=== PATIENT | female | born 1990 | race Caucasian/White ===

== ENCOUNTER 2016-08-22 01:32 | Emergency (ER) | payer OTHER ==
[~2016-08-22] VITALS: Ht 167.6 cm; Wt 54.7 kg
[~2016-08-22 01:32] MED LIST: ALBUAER2 INH; CETI10TA84 PO; FLUT0.15 NAE; MELO15TA4 PO
[2016-08-22 01:33] VITALS: TEMP 36.5; Ht 167.6 cm; Wt 54.7 kg
[2016-08-22] MEDS ORDERED: PRENTAB26 PO (04:26)
--- NOTE | 2016-08-22 04:28 | EMERGENCY ROOM VISIT NOTE ---
History Report prepared by [place]ill[place]: Nikole Estrada Under the Supervision of: Dr. Ankita Baker M.D. First contact with patient: 04:24 Chief Complaint: CONSTIPATION Stated Complaint: LLQ ABDOMINAL PAIN, CONSTIPATION Nursing Triage Summary: Patient c/o LLQ abdominal pain and constipation that began a few months ago. Currently 15 weeks . No relief with suppositories, enemas, or MOM at home. History of Present Illness The patient is a 25 year old female who presents to the Emergency Room with complaints of constant constipation for the past 2 months. She is 15 weeks . She has been taking MiraLAX and Colace daily. Over the past couple of weeks her constipation has worsened. About a week ago it had been 14 days since she had a bowel movement. In the past week she had 2 bowel movements. She had tried enemas and suppositories without any relief. The patient called her ob- hostel manager 3 days ago who recommended milk of magnesia and to come to the ED if she did not get relief. The patient had some relief yesterday after taking the milk of magnesia. Today she had 5 bowel movements. She describes her stool as thin and narrow. Her stools have been liquid for the past month. The patient states that this evening she stopped being able to evacuate her bowels. She took another dose of the milk of magnesia tonight around 1900. The patient also reports intermittent LLQ abdominal pain for the past week that worsened tonight. She describes her pain as a dull ache and rates it as a 5/10 in severity. She could not sleep due to her pain so she came to the ED for further evaluation. The patient did not go to work today because of her symptoms. She is not taking any iron supplements. Source of History: patient Onset: 2 months ago Position: abdomen (LLQ) Symptom Intensity: 5/10 Quality: other (constipation) Timing: constant Modifying Factors (Relieving): movement, other (Milk of magnesia) Note: The patient is 15 weeks . Review of Systems See HPI for pertinent positives & negatives. A total of 10 systems reviewed and were otherwise negative. Past Medical & Surgical Medical Problems: (1) Asthma (2) Back pain (3) Bronchitis (4) Chest pain, musculoskeletal (5) Cough (6) Cough (7) Pneumonia (8) Right rib fracture (9) Right rib fracture (10) Right-sided chest wall pain (11) Stomach problems Surgical Problems: (1) History of wisdom tooth extraction Family History FH: heart disease Hypertension Social History Smoking Status: Never Smoker Alcohol Use: occasionally Drug Use: none Marital Status: in relationship Housing Status: lives with family Occupation Status: employed Current/Historical Medications Scheduled Dicyclomine Hcl (Bentyl), 10 MG PO Q6 Multivit/Min/Iron/Fol Ac/Pren ( Vitamin), 1 TAB PO DAILY Scheduled PRN Albuterol (Ventolin Hfa), 2 PUFFS INH Q4H PRN for Shortness of Breath Cetirizine (Zyrtec), 10 MG PO DAILY PRN for SOB/Wheezing Fluticasone Propionate (Nasal) (Flonase Allergy Relief), 2 SPRAYS MAGDI DAILY PRN for CONGESTION Allergies Coded Allergies: Neomycin (Verified Allergy, Mild, itchy ears, 08/24/14) used as ear dropps Levofloxacin (Verified Allergy, Unknown, NAUSEA/VOMITING, 08/26/14) Physical Exam Vital Signs Date Time Temp Pulse Resp B/P Pulse Ox O2 Delivery O2 Flow Rate FiO2 08/22/16 05:08 74 20 103/66 98 08/22/16 04:07 91 18 98/55 97 Room Air 08/22/16 01:33 36.5 93 18 130/88 99 Room Air Physical Exam Vital signs reviewed. General: Well-appearing 25-year-old female, in no significant distress. HEENT: No scleral icterus, PERRLA, neck supple. Atraumatic. Cardiovascular: Regular rate and rhythm, no extra sounds. Pulmonary: Clear to auscultation bilaterally, normal work of breathing. Abdomen: Soft, gravid, nontender, nondistended, positive bowel sounds. Musculoskeletal: Atraumatic, no peripheral edema. Neurologic: Patient awake alert and oriented x 3 Skin: Warm, dry, no rash Medical Decision & Procedures ER Provider Diagnostic Interpretation: Radiology results as stated below per my review and radiologist interpretation: US PELVIC/OB: The ovaries were not visualized due to overlying bowel gas. No free fluid appreciated. Single intrauterine . heart rate = 150 bpm. Radiologist: Shukri Petty M.D. Laboratory Results Test 08/22/16 02:37 Urine Color YELLOW Urine Appearance CLEAR (CLEAR) Urine pH 7.0 (4.5-7.5) Urine Specific [place] 1.003 (1.000-1.030) Urine Protein NEG (NEG) Urine Glucose (UA) NEG (NEG) Urine Ketones NEG (NEG) Urine Occult Blood NEG (NEG) Urine Nitrite NEG (NEG) Urine Bilirubin NEG (NEG) Urine Urobilinogen NEG (NEG) Urine Leukocyte Esterase NEG (NEG) Urine WBC (Auto) 1-5 /hpf (0-5) Urine RBC (Auto) 0-4 /hpf (0-4) Urine Hyaline Casts (Auto) 1-5 /lpf (0-5) Urine Epithelial Cells (Auto) 10-20 /lpf (0-5) Urine Bacteria (Auto) NEG (NEG) Date/Time Source Procedure Growth Status 08/22/16 02:37 Urine , Clean Catch Urine Culture - Final NO GROWTH - LESS THAN 1,000 COLONIES/ML Complete Laboratory results per my review. Medications Administered Medications (Trade) Dose Ordered Sig/Ritika Route Start Time Stop Time Status Last Admin Dose Admin Dicyclomine HCl (Bentyl Cap) 10 mg NOW ONCE PO 08/22/16 05:00 08/22/16 05:01 DC 08/22/16 05:05 10 MG ED Course 0218: Past medical records reviewed. The patient was evaluated in room B8. A complete history and physical examination was performed. 0455: I reassessed the patient at this time. She is feeling better and resting comfortably. I discussed the results and treatment plan with the patient. I answered all pertaining questions that she had. She expressed understanding and verbalized agreement. The patient will be discharged home. 0500: Dicyclomine HCl 10 mg PO Medical Decision Differential diagnoses includes ovarian cyst, ovarian torsion, ectopic , colitis, diverticulitis, laxative misuse, UTI. This pt was evaluated and appeared to be in no distress. PE reveals a soft abdomen with palpable gravid uterus. LLQ is mildly reproducible. UA is negative. US of fetus reveals a viable IUP with FHT 150 bpm. Ovaries were not visualized. Pt had 5 BMs today. I suspect she is overusing softeners and laxatives at this point b/c of previous constipation. Pain is likely r/t bowel spasm. She was given Bentyl 10 mg po. I do not feel the pt's presentation warrants imaging at this time. She will f/u with her OBGYN this week for reevaluation and return to the ED for worsening of symptoms or any medical concerns. Impression Primary Impression: Abdominal pain, LLQ Additional Impression: Second trimester Scribe Attestation The scribe's documentation has been prepared under my direction and personally reviewed by me in its entirety. I confirm that the note above accurately reflects all work, treatment, procedures, and medical decision making performed by me. Departure Information Dispostion Home / Self-Care Prescriptions Dicyclomine Hcl (BENTYL) 10 Mg Cap 10 MG PO Q6, #30 CAP Prov: Ankita Baker M.D. 08/22/16 Referrals No Doctor, Assigned (PCP) Forms HOME CARE DOCUMENTATION FORM, IMPORTANT VISIT INFORMATION Patient Instructions My [facility] Additional Instructions Diagnosis: Left lower quadrant abdominal discomfort, second trimester Increase the fiber and water in your diet Stop using laxatives. You may continue Colace 100 mg twice daily. Bentyl 10 mg every 6 hours as needed for bowel cramping Follow-up with your MEDIUM CYCLE SALESPERSON this week for reevaluation. Return to the ER for worsening of symptoms or any medical concerns. Problem Qualifiers
[2016-08-22 04:30] LABS: URINE APPEARANCE CLEAR (CLEAR); URINE BILIRUBIN NEG (NEG); URINE COLOR YELLOW; URINE NITRITE NEG (NEG); URINE SPECIFIC GRAVITY 1.003 (1.000-1.030); UROBILINOGEN NEG (NEG)
[2016-08-22 04:31] LABS: MANUAL MICROSCOPIC REQUIRED? NO; REVIEW REQ? NO
[2016-08-22] MEDS ORDERED: DICYCLOMINE HCL 10 MG CAP PO ONE (05:00)
[2016-08-22] MEDS ORDERED: DICY10CA55 PO (05:04)
[2016-08-22 05:08] VITALS: BP 103/66; PULSE 74; O2SAT 98
--- NOTE | 2016-08-22 07:26 | DIAGNOSTIC IMAGING REPORT ---
PELVIC ULTRASOUND, TRANSABDOMINAL AND TRANSVAGINAL HISTORY: . Left lower quadrant abdominal/pelvic pain. COMPARISON: None. FINDINGS: Uterus: There is a posterior fundal placenta. No evidence for subchorionic hematoma. The cervix appears closed and is 3.7 cm in length. Small focal contraction within the anterior uterus. Normal amniotic fluid volume. heart rate was 150 bpm. Right ovary: Obscured by overlying bowel gas. Left ovary: Obscured by overlying bowel gas. Miscellaneous:No pelvic free fluid. IMPRESSION: 1. The ovaries were obscured by overlying bowel gas. No adnexal masses identified. 2. Single live intrauterine gestation with a heart rate of 150 bpm. Electronically signed by: Tereso Fry M.D. 08/22/2016 7:25 AM Dictated Date/Time: 08/22/2016 7:22 AM
== END 2016-08-22 05:08 | disposition home or self-care (01) ==
LOC: C.EDB 01:33
DX: O99.89 Other specified diseases and conditions complicating pregnancy, childbirth and the puerperium (principal); R10.32 Left lower quadrant pain; Z3A.15 15 weeks gestation of pregnancy; J45.909 Unspecified asthma, uncomplicated; Z87.01 Personal history of pneumonia (recurrent); Z82.49 Family history of ischemic heart disease and other diseases of the circulatory system

== ENCOUNTER → 2016-11-22 | Outpatient (CLI) | payer OTHER ==
[~2016-11-22] MED LIST changes: +DOCU-94 PO; -MELO15TA4 PO; +PRENTAB26 PO
[2016-11-22 15:03] LABS: URINE APPEARANCE CLEAR (CLEAR); URINE BILIRUBIN NEG (NEG); URINE COLOR YELLOW; URINE EPITHELIAL CELL AUTO 20-30 /lpf (0-5); URINE NITRITE NEG (NEG); URINE SPECIFIC GRAVITY 1.012 (1.000-1.030); UROBILINOGEN NEG (NEG)
[2016-11-22 15:06] LABS: MANUAL MICROSCOPIC REQUIRED? NO; REVIEW REQ? NO
== END | disposition home or self-care (01) ==
LOC: C.LABSPEC 13:53
PROVIDERS: ATTEND Obstetrics & Gynecology
DX: Z34.83 Encounter for supervision of other normal pregnancy, third trimester (principal)

== ENCOUNTER → 2017-01-17 | Outpatient (CLI) | payer OTHER | END | disposition home or self-care (01) | LOC: C.LABSPEC 14:00 | PROVIDERS: ATTEND Obstetrics & Gynecology | DX: Z34.83 Encounter for supervision of other normal pregnancy, third trimester (principal) ==

== ENCOUNTER 2017-01-23 10:36 | Outpatient (CLI) | payer OTHER ==
[~2017-01-23] VITALS: Ht 167.6 cm; Wt 63.8 kg
[~2017-01-23 10:36] MED LIST changes: -DOCU-94 PO
[2017-01-23 11:35] VITALS: Ht 167.6 cm; Wt 63.8 kg
--- NOTE | 2017-01-31 07:56 | EDITING REQUIRED CODING QUERY ---
DIAGNOSIS NEEDED To promote full compliance with coding requirements relating to patient care, physician participation is requested in all cases of health information coder uncertainty. Please assist us with the question(s) below: Coding Question: The patient received care in labor and delivery on 01/23/17 as noted within the record. Please document the diagnosis that is being addressed by the medication/treatment. Provider Response: DIAGNOSIS: Labor check Thank you for your assistance, Ivana Almonte - Advertising Assistant
== END 2017-01-23 13:10 | disposition home or self-care (01) ==
LOC: C.OPB 10:36 → UNDOADMOB 10:37 → C.LD 10:37 → UNDODISOB 13:10 → EDSTATUS 02-13 10:34
PROVIDERS: ATTEND Obstetrics & Gynecology
DX: Z34.83 Encounter for supervision of other normal pregnancy, third trimester (principal); Z3A.37 37 weeks gestation of pregnancy

== ENCOUNTER 2017-02-03 14:34 | Outpatient (CLI) | payer OTHER ==
[~2017-02-03] VITALS: Ht 167.6 cm; Wt 63.6 kg
[2017-02-03 15:47] VITALS: Ht 167.6 cm; Wt 63.6 kg
== END 2017-02-03 15:35 | disposition home or self-care (01) ==
LOC: C.LD 14:34 → C.OPB 14:34
PROVIDERS: ATTEND Obstetrics & Gynecology
DX: O26.893 Other specified pregnancy related conditions, third trimester (principal); N89.8 Other specified noninflammatory disorders of vagina; Z3A.38 38 weeks gestation of pregnancy

== ENCOUNTER 2017-02-05 09:37 | Outpatient (CLI) | payer OTHER ==
[~2017-02-05] VITALS: Ht 167.6 cm; Wt 63.7 kg
[2017-02-05 10:11] VITALS: Ht 167.6 cm; Wt 63.7 kg
[2017-02-05] MEDS ORDERED: LACTATED RINGER'S 1000ML 1,000 ML IV SCH ×2 (13:30→16:45)
[2017-02-05] MEDS ORDERED: MEPERIDINE HCL 50 MG/ML CARP IV PRN (16:30)
[2017-02-05] MEDS ORDERED: PROMETHAZINE HCL INJ 25 MG in SODIUM CHLORIDE 0.9% 50ML 50 ML IV ONE (16:30)
== END 2017-02-05 19:20 | disposition home or self-care (01) ==
LOC: C.OPB 09:37 → C.LD 09:37 → C.OPB 19:20
PROVIDERS: ATTEND Obstetrics & Gynecology
DX: Z34.83 Encounter for supervision of other normal pregnancy, third trimester (principal); Z3A.38 38 weeks gestation of pregnancy

== ENCOUNTER 2017-02-13 03:14 | Inpatient (IN) | payer OTHER ==
[~2017-02-13] VITALS: Ht 167.6 cm; Wt 63.5 kg
[2017-02-13] MEDS ORDERED: LACTATED RINGER'S 1000ML 1,000 ML IV PRN (03:37)
[2017-02-13] MEDS ORDERED: LACTATED RINGER'S 1000ML 1,000 ML IV SCH ×2 (03:37→07:00)
[2017-02-13] MEDS ORDERED: DOCU-94 PO (03:59)
[2017-02-13 04:01] VITALS: Ht 167.6 cm; Wt 63.5 kg
[2017-02-13 04:31] LABS: HEMATOCRIT 36.3 % (37-47); MEAN CELL VOLUME 90.5 fL (80-100); MEAN CORPUSCULAR HEMOGLOBIN 29.9 pg (25-34); MEAN CORPUSCULAR HGB CONC 33.1 g/dl (32-36); MEAN PLATELET VOLUME 12.5 fL (7.4-10.4); PLATELET COUNT 128 K/uL (130-400); RED BLOOD COUNT 4.01 M/uL (4.2-5.4); WHITE BLOOD COUNT 13.87 K/uL (4.8-10.8)
[2017-02-13] MEDS ORDERED: EpHEDrine SULFATE INJ 50 MG/ML AMP ONE (04:56)
[2017-02-13] MEDS ORDERED: BUPIVACAINE 0.25% 30 ML VIAL ONE (04:56)
[2017-02-13] MEDS ORDERED: FENTANYL 2MCG/ML ROPIV 1.25MG/ML 100ML BAG EPI ONE (04:56)
[2017-02-13] MEDS ORDERED: FENTANYL CITRATE INJ 50 MCG/1 ML 2 ML VIAL ONE (04:57)
[2017-02-13] MEDS ORDERED: LACTATED RINGER'S 1000ML 500 ML IV PRN (05:33)
[2017-02-13] MEDS ORDERED: NALOXONE HCL INJ 1 MG in SODIUM CHLORIDE 0.9% 1000ML 1,000 ML IV PRN (05:33)
[2017-02-13] MEDS ORDERED: EpHEDrine SULFATE INJ 50 MG/ML AMP IV PRN (05:45)
[2017-02-13] MEDS ORDERED: DiphenhydrAMINE HCL 50 MG/ML VIAL IV PRN (05:45)
[2017-02-13] MEDS ORDERED: NALOXONE HCL INJ 0.4 MG/1 ML VIAL/CARP IV PRN (05:45)
[2017-02-13] MEDS ORDERED: NALBUPHINE HCL INJ 10 MG/ML AMP IV PRN (05:45)
[2017-02-13] MEDS ORDERED: FENTANYL 2MCG/ML ROPIV 1.25MG/ML 100ML BAG EPI PRN (05:45)
[2017-02-13] MEDS ORDERED: OXYTOCIN 30 UNITS/500ML NSS IV ONE (06:09)
[2017-02-13] MEDS ORDERED: SUPERCREAM 0.870 % 15GM JAR EXT PRN (06:15)
[2017-02-13] MEDS ORDERED: DIPHTHERIA/TETANUS/PERTUSSIS 0.5 ML SYR/VIAL IM. ONE (06:15)
[2017-02-13] MEDS ORDERED: OXYTOCIN 30 UNITS/500ML NSS IV PRN (06:15)
[2017-02-13] MEDS ORDERED: LANOLIN OINT EXT PRN ×2 (06:15)
[2017-02-13] MEDS ORDERED: HYDROCORTISONE ACETATE 25 MG SUPP PR PRN (06:15)
[2017-02-13] MEDS ORDERED: OXYCODONE/ACETAMINOPHEN 5-325 TAB PO PRN (06:15)
[2017-02-13] MEDS ORDERED: ACETAMINOPHEN 325 MG TAB PO PRN (06:15)
[2017-02-13] MEDS ORDERED: BENZOCAINE 20% AER SPR 82.5 GM CAN EXT PRN (06:15)
--- NOTE | 2017-02-13 06:25 | Vaginal Delivery Summary ---
Vaginal Delivery Summary Patient pushing effectively and brought the head to at which point I was called for delivery. She was prepped with soap and water, then coached through pushing to deliver the head in ROP position with a compound presentation of R arm/hand. The arm was gently delivered in physiologic fashion , then downward traction was applied to ease the left/anterior shoulder out. The remainder of the delivery was without difficulty. The was actually pulled the rest of the way out by mom who reached down and took the onto her abdomen. The cord was doubly clamped and cut by the father. Cord blood was collected. The placenta delivered spontaneously and was intact with a 3VC. There were no lacerations requiring repair.
--- NOTE | 2017-02-13 06:48 | Anesthesia Procedure Note ---
Anesthesia Epidural Removal Nt Date & Time Feb 13, 2017 at 06:48 Notes Mental Status: alert / awake / arousable, participated in evaluation Nausea / Vomiting: adequately controlled Pain: adequately controlled Airway Patency, RR, SpO2: stable & adequate BP & HR: stable & adequate Hydration State: stable & adequate Neuraxial Anesthesia: was administered Anesthetic Complications: no major complications apparent, pt satisfied with anesthetic care Epidural: removed without complications, with tip intact
[2017-02-13] MEDS ORDERED: PRENATAL VITAMIN TAB PO SCH (08:00)
[2017-02-13 08:55] VITALS: BP 126/87; PULSE 73; TEMP 36.7
[2017-02-13 12:00] VITALS: BP 112/78; PULSE 78; TEMP 36.8
[2017-02-13] MEDS: IBUPROFEN 600 MG TAB PO PRN ×2 (12:19→20:13)
[2017-02-13 15:00] VITALS: BP 118/74; PULSE 64; TEMP 36.7
[2017-02-13] MEDS: DOCUSATE SODIUM 100 MG CAP PO SCH ×2 (20:04→20:16)
[2017-02-13 23:35] VITALS: BP 113/67; PULSE 58; TEMP 36.7
[2017-02-14] MEDS: IBUPROFEN 600 MG TAB PO PRN (01:51)
[2017-02-14 04:35] VITALS: BP 116/72; PULSE 72; TEMP 36.6
--- NOTE | 2017-02-14 07:05 | OB/GYN Progress Note ---
IT APPLICATION SUPPORT ANALYST Progress Note Date of Service Feb 14, 2017. Subjective conversation w/ patient, physical exam, chart review, lab review Ambulation: ambulating normally Voiding: no voiding problems Passing Gas: Yes Diet Tolerance: Regular Diet Lochia: Small Feeding Type: Breast Feeding Pain: mild low abd cramping Review of Systems Constitutional: No fever, No chills Respiratory: No cough, No shortness of breath Cardiac: No chest pain Abdomen: No nausea, No vomiting, No diarrhea Female : No dysuria Objective Vital Signs Date Time Temp Pulse Resp B/P (MAP) Pulse Ox O2 Delivery O2 Flow Rate FiO2 02/14/17 04:35 36.6 72 18 116/72 (87) Room Air 02/13/17 23:35 Room Air 02/13/17 23:35 36.7 58 20 113/67 (82) Room Air 02/13/17 15:00 36.7 64 18 118/74 (89) Room Air 02/13/17 15:00 Room Air 02/13/17 12:00 36.8 78 18 112/78 (89) Room Air 02/13/17 08:55 36.7 73 18 126/87 (100) Room Air 02/13/17 08:55 Room Air Physical Exam General Appearance: WELL-APPEARING, WD/WN, NO APPARENT DISTRESS Respiratory/Chest: lungs clear, normal breath sounds Cardiovascular: regular rate, rhythm Abdomen: normal bowel sounds, non tender Fundus: Firm, Non-Tender, Relation to Umbilicus (at umbilicus) Extremities: normal range of motion, non-tender, no pedal edema, no calf tenderness Laboratory Results Last 24 Hours Test 02/14/17 04:44 Assessment and Plan Post- Day Number: 1 Continue Routine Care: 26yo s/p , now PPD #1. - Blood type O pos. GBS negative. Rubella immune. - Vital signs reviewed and stable. - Pain controlled with motrin. - No leg swelling or tenderness on calf palpation. Encourage ambulation. - Encourage breast feeding. - Hemoglobin prepartum 12.0, post-delivery pending this am. Bleeding has improved. Continue to monitor clinically. - Continue routine post-vaginal delivery care. - Pt agreed with above plan, all current questions answered. Trevor Pabon MD, PGY1 Gaming Cage Cashier Physician Supervision Note: I interviewed and examined the patient. Discussed with Dr. Pabon and agree with findings and plan as documented in the note. Any exceptions or clarifications are listed here: Doing well. Plan d/c. Instructions given. Documented By: Laura Jensen Resident Tracking Resident Involvement: Resident Care Provided Care Provided: OB Delivery (morning rounds)
--- NOTE | 2017-02-14 07:06 | Discharge Instructions ---
Discharge Instructions Date of Service Feb 14, 2017. Admission Reason for Admission: Normal Labor And Delivery Discharge Discharge Diagnosis / Problem: Recovery from vaginal delivery Discharge Goals Goal(s): Routine recovery after delivery Medications Continue Dispensed Medications: supercream, dermaplast, tucks, lansinoh Activity Recommendations Activity Limitations: per Instructions/Follow-up section . Instructions / Follow-Up Instructions / Follow-Up ACTIVITY RECOMMENDATIONS: * Gradual return to full activity over the next 2-3 weeks. * No lifting - nothing heavier than baby over the next 2-3 weeks. * Do not engage in vigorous exercise, sexual activity or sports until cleared by your physician. * Do not drive or operate any motorized equipment until cleared by your physician. * You may shower/bathe daily. MEDICATIONS: For discomfort or pain, you may use Acetaminophen (Tylenol), Ibuprofen (Advil), or Naproxen (Aleve) following the package directions. For constipation you may use Colace following the package directions. BREAST CARE: If you are not breast feeding: * Wear a supportive bra 24 hours a day for one to two weeks. * Avoid stimulating your breasts and nipples as much as possible during the first few weeks after delivery. * When taking a shower, have the warm water hit your back, not breasts. * When your breasts feel full, apply ice packs. Usually three to four times a day helps ease the discomfort. * Take a mild pain medication (Tylenol / Motrin) when you are uncomfortable. If breast feeding: * Use breast milk to lubricate nipples. Lansinoh cream may be used for sore nipples. You do not need to remove cream prior to breast feeding. If using a different brand of cream, check the label for directions regarding removal of cream prior to nursing. * Wear a supportive bra. * If having problems with breasts or breast feeding, call a information resource consultant or your health care provider. EPISIOTOMY CARE: After delivery, if you have an episiotomy (stitches), the following steps will ease discomfort and aid healing. * For the first 24 hours after delivery, place ice packs next to your episiotomy to help reduce swelling. * After the first 24 hour-period, sitz baths, either portable or in the tub, are suggested. A shower with a shower arm sprayed over the episiotomy may be comforting. * Tena care should be done after each voiding and bowel movement. Squirt warm water from a plastic bottle over the perineum (region of the body between the anus and urinary opening) and pat dry. * Use Dermoplast to ease discomfort. Shake container. [place] directly over the episiotomy. Place a Tucks on a clean sanitary pad next to your episiotomy. SPECIAL CARE INSTRUCTIONS: When you are discharged from the hospital, it is important for you to follow the instructions listed below: * During the first week at home, you should be able to care for yourself and your baby. In addition, the usual light household activities are encouraged. * Limit your activities to the way you feel. Do not try to clean the house or move furniture. Be sensible. * If you actively engage in sports and have done so up until the time of your delivery, you may resume these activities as soon as you feel able. This may take up to one month or even longer. Use good judgment. * Continue to take your vitamins for at least six weeks after the of your baby. * Your diet need not be limited unless you were on a special diet before your delivery. Breast-feeding mothers need around 2500 calories per day and at least 64-80 ounces of fluid per day (8 to 10 glasses). * You should eat foods from the four major food groups. Crash diets or fad diets are to be avoided. Eating lean meats, fresh fruits and vegetables, low-fat dairy products, high fiber foods and a regular exercise program, will help you get back to your pre- weight without putting your health at risk. * Constipation is sometimes a problem after delivery. Take a mild laxative as needed. If breast feeding, Milk of Magnesia is acceptable to use. You may use a suppository or Fleets enema if no episiotomy. * A daily shower or tub bath is suggested. Be sure to thoroughly and gently dry the perineum. * A bloody vaginal discharge will usually continue until around four weeks post . A small amount of bleeding may continue for as long as six weeks. Vaginal discharge changes from the bright red bleeding after delivery to pink then brownish and finally yellowish-pink before becoming white and disappearing. * Bleeding may increase with activity. Your first period may come in 4-8 weeks. If you are breast feeding, your period may be delayed even longer. * [place] (sex) can begin whenever both you and your partner feel comfortable and do not have any form of genital infection. It is recommended that you wait at least six weeks for internal and external healing to occur. If you have questions, please talk to your health care practitioner. A condom should be used to prevent infection and . * Foreplay, gentle intercourse and lubrication is very important the first several times to prevent pain. A water-based lubricant such as K-Y jelly or Astroglide may be used. * If you have RH negative blood and your baby is RH positive, you will receive RHOGAM by injection prior to discharge. The nurse will give you a card to keep with you that has the date and place that you received RHOGAM after delivery. * During your care, you had a Rubella screen done to check for the presence of rubella antibodies in your blood. If your test was negative, you will receive a Rubella vaccine prior to discharge. This vaccine may cause a fever, soreness at the injection site and flu-like symptoms. If these symptoms persist, notify your health care practitioner. is not advised for one month after a Rubella vaccine. * Verbalizes understanding of car seat law as reviewed with patient nursing. * Car Seat hand-out given and reviewed with patient by nursing. * Shaken baby information reviewed with patient by nursing. Call you doctor if: * Heavy bleeding (saturating several pads an hour) or passing clots the size of your fist. * A fever >101 degrees F (38.3 degrees C) on two occasions four hours apart and /or chills. * Unusual pain in the pelvic or vaginal areas. * "Baby Blues" lasting longer than two weeks. If you have any questions or concerns, call your health care practitioner at . FOLLOW UP VISIT: * Please call the office at to schedule a 6 week examination. It is important you keep this appointment. It is important for you to make arrangements for either yearly or twice yearly check-ups thereafter. Current Hospital Diet Patient's current hospital diet: Regular OB Diet Discharge Diet Recommended Diet: Regular OB Diet Pending Studies Studies pending at discharge: no Medical Emergencies . Who to Call and When: Medical Emergencies: If at any time you feel your situation is an emergency, please call 911 immediately. . Non-Emergent Contact Non-Emergency issues call your: Mica Spreader . . "Provider Documentation" section prepared by Trevor Pabon. . VTE Core Measure Inpt VTE Proph given/why not?: Treatment not indicated
[2017-02-14 07:32] VITALS: BP 120/82; PULSE 68; TEMP 36.6; O2SAT 97
[2017-02-14 07:57] LABS: HEMATOCRIT 37.1 % (37-47)
[2017-02-14] MEDS: DOCUSATE SODIUM 100 MG CAP PO SCH (07:58)
[2017-02-14 10:50] VITALS: BP_DIAS 82; PULSE 68; TEMP 36.6
== END 2017-02-14 11:18 | disposition home or self-care (01) | DRG 775 ==
LOC: C.OPB 03:14 → C.LD 03:15 → C.OPB 03:39 → C.OBG 08:50
PROVIDERS: ADMIT Obstetrics & Gynecology; ATTEND Obstetrics & Gynecology
PROC: 10E0XZZ Delivery of Products of Conception, External Approach (ICD-10-PCS; principal; 2017-02-13)
DX: O32.6XX0 Maternal care for compound presentation, not applicable or unspecified (principal); Z3A.40 40 weeks gestation of pregnancy; Z37.0 Single live birth

== ENCOUNTER 2019-12-21 07:34 | Inpatient (IN) ==
[2019-12-21] MEDS ORDERED: OXYTOCIN 30 UNITS/500 ML BAG IV PRN ×3 (07:57→15:22)
[2019-12-21] MEDS ORDERED: PENICILLIN G POTASSIUM 6 MU in DEXTROSE 5% 250 ML IV ONE (08:30)
[2019-12-21 08:37] LABS: Hematocrit (blood only) 34.8 % (37-47); Hemoglobin 11.6 g/dL (12.0-16.0); Mean Corpuscular Hemoglobin 30.7 pg (25-34); Mean Corpuscular Hgb Conc 33.3 g/dL (32-36); Mean Corpuscular Volume 92.1 fL (80-100); RDW Coefficient of Variation 13.6 % (11.5-14.5); Red Blood Count 3.78 M/uL (4.2-5.4); White Blood Count 14.42 K/uL (4.8-10.8)
[2019-12-21 08:50] LABS: Mean Platelet Volume 13.3 fL (7.4-10.4); Platelet Count 123 K/uL (130-400)
[2019-12-21 08:51] LABS: Platelet Estimate Decreased (Normal)
--- NOTE | 2019-12-21 08:57 | History & Physical Report ---
Date of Service December 21, 2019 Assessment & Plan (1) : 29 yo @ 39.0 here for IOL complicated by pyelonephritis during and GBS carrier - admits, IV, labs - augmentation with Pitocin, continue to augment as needed Labs: GBS carrier, O+ SVE: 3cm 50%, -2, mid, moderate GBS + status - Penicillin 6 million units now and 3 million units in 4 hours Fetus - FHTS: category 1 - continue monitoring - contractions every 2-3 minutes History of Present Illness Chief Complaint: IOL Primary Care Provider: NO PCP Heather Braxton is a 29 yo @ 39 weeks 2 days (based on known LMP) with history of pyelonephritis on nitrofurantoin prophylaxis and GBS carrier status. She is here for IOL due to prior precipitous delivery prior. She is taking iron for anemia. Contractions have started this morning. She has had no LOF or bleeding. She noted that she has lost some mucus. She has good movement. She has allergies to Neomycin and Levofloxin She breastfeed her prior children and plans to breastfeed. Allergies Allergy/AdvReac Type Severity Reaction Status Date / Time neomycin Allergy Mild itchy ears Verified 12/21/19 08:13 levofloxacin AdvReac Unknown NAUSEA/VOMI Verified 12/21/19 08:13 TING Home Medications Home Medications Medication Instructions Recorded Confirmed Type prenat.vits,adalberto,[id number] 1 tab PO DAILY 07/09/19 12/15/19 History ferrous sulfate 1 tab PO DAILY 11/05/19 12/15/19 History nitrofurantoin 100 mg PO HS #30 cap 11/08/19 12/15/19 Rx monohydrate/macrocrystals 100 mg capsule Patient History Medical History Abdominal pain, LLQ (Inactive) Arthritis Back pain (Resolved) Bronchitis (Resolved) Chest pain, musculoskeletal (Resolved) Cough (Resolved) Encounter for anatomic survey False labor after 37 completed weeks of gestation History of asthma History of delivery History of varicella Normal labor and delivery Pneumonia (Resolved) Right rib fracture (Resolved) Right-sided chest wall pain (Resolved) UTI (urinary tract infection) Surgical History S/P tonsillectomy S/P wisdom tooth extraction Family History Grandmother (Paternal) Dyslipidemia Thyroid disease Social History Preferred Language: Georgian Communication Ability: Effective 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 Review of Systems Denies fever, chills, sweats Denies shortness of breath, difficulty breathing, chest pain, palpitations, chest pressure. Denies dysuria. Denies headache. Denies: double vision, RUQ pain, lower extremity swelling Physical Exam Physical Exam: General: Alert, oriented. No acute distress. Cardiac: Regular rate and rhythm, no murmurs/rubs/gallops. Respiratory: Clear to auscultation anterior and posteriorly, no wheezes/rales/rhonchi. No increased work of breathing. Symmetrical chest rise. No respiratory distress. Abdomen: Gravid, Vertex, Bowel sounds present. Lower Extremities: No lower extremity edema or swelling. No deep calf pain. Jesse's negative bilaterally. SVE: 4cm, 75%, -2, soft, mid Results & Data Vital Signs (Past 12 Hours) Vital Signs Temp Pulse Resp BP 12/21/19 07:46 36.1 C L 86 20 122/74 12/21/19 07:42 36.1 C L 86 20 122/74 Monitoring External Monitor Category 1 - baseline rate 155 - moderate variability - no early decelerations, no late decelerations, no variable decelerations Tocometry - contractions q2-3 minutes Supervising Physician Co-Signing Physician Notes Resident Physician Supervision Note: I interviewed and examined the patient. Discussed with Dr. Yancey and agree with findings and plan as documented in the note. Any exceptions or clarifications are listed here: Patient is a 29yowf with iup at 39 weeks who presents for elective induction for hx of rapid labor and induction. Cervix is favorable and plan pitocin, arom and anticipate vaginal delivery. GBS positive so will need prophylaxis. Fetus category one. Documented By: Laura Jensen MD, FACOG Resident Activity Tracking Resident Involvement: Resident Care Provided Care Provided: OB Delivery
[2019-12-21] MEDS: LACTATED RINGER'S 1,000 ML IV PRN ×2 (08:58→13:11)
[2019-12-21] MEDS ORDERED: ePHEDrine sulfate 50 MG/ML AMP ONE (12:12)
[2019-12-21] MEDS ORDERED: BUPIVACAINE 0.25% 30 ML VIAL ONE (12:12)
[2019-12-21] MEDS ORDERED: fentaNYL citrate 100 MCG/2 ML VIAL ONE (12:12)
[2019-12-21] MEDS ORDERED: fentaNYL 2MCG/ML ROPIV 1.25MG/ML 100 ML BAG EPI ONE (12:13)
[2019-12-21] MEDS ORDERED: PENICILLIN G POTASSIUM 3 MU in DEXTROSE 5% 100 ML IV PRN (12:30)
--- NOTE | 2019-12-21 12:49 | Anesthesiology Consultation ---
Date of Service December 21, 2019 Assessment & Plan (1) Encounter for pre-operative examination: Chart Review Chart Review: Acceptable Risk for Labor Epidural History Height/Weight Height: 5 ft 6 in Weight: 63.503 kg Allergies Allergy/AdvReac Type Severity Reaction Status Date / Time neomycin Allergy Mild itchy ears Verified 12/21/19 08:13 levofloxacin AdvReac Unknown NAUSEA/VOMI Verified 12/21/19 08:13 TING Medications Home Medications Medication Instructions Recorded Confirmed Last Taken prenat.vits,adalberto,pbn-[id number] 1 tab PO DAILY 07/09/19 12/15/19 12/14/19 ferrous sulfate 1 tab PO DAILY 11/05/19 12/15/19 1 Day Ago ~12/14/19 nitrofurantoin 100 mg PO HS #30 cap 11/08/19 12/15/19 12/14/19 22:00 monohydrate/macrocrystals 100 mg capsule Active Medications Generic Name Dose Route Start Last Admin Trade Name Freq PRN Reason Stop Dose Admin Lactated Ringer's 1,000 mls @ 125 mls/hr 12/21/19 07:57 12/21/19 12:02 Lr IV 12/23/19 07:56 999 mls/hr .Q8H PRN Infusion L&D Protocol Protocol Penicillin G Potassium 3 mu/ 106 mls @ 100 mls/hr 12/21/19 12:30 12/21/19 1 2:37 Dextrose IV 12/31/19 12:29 100 mls/hr Q4H PRN Administration Give until delivery Oxytocin 30 units in 500 mls @ 6 mls/hr 12/21/19 07:57 12/21/19 12:30 Pitocin IV 12/23/19 07:56 0.36 units/hr .Q24H PRN 6 mls/hr Labor Induction/Augmentation Titration Protocol 0.36 UNITS/HR Past Medical History Medical History Abdominal pain, LLQ (Inactive) Arthritis Back pain (Resolved) Bronchitis (Resolved) Chest pain, musculoskeletal (Resolved) Cough (Resolved) Encounter for anatomic survey False labor after 37 completed weeks of gestation History of asthma History of delivery History of varicella Normal labor and delivery Pneumonia (Resolved) Right rib fracture (Resolved) Right-sided chest wall pain (Resolved) UTI (urinary tract infection) Past Family History Family History Grandmother (Paternal) Dyslipidemia Thyroid disease Past Surgical History Surgical History S/P tonsillectomy S/P wisdom tooth extraction Social History Smoking Status: Never smoker Hx Alcohol Use: No Hx Substance Use: No Physical Exam Vital Signs Last Vital Signs Temp 36.1 C L 12/21/19 07:46 Pulse 75 12/21/19 12:45 Resp 20 12/21/19 07:46 BP 122/59 L 12/21/19 12:35 Pulse Ox 99 12/21/19 12:45 Testing Laboratory Results 12/21/19 08:10
[2019-12-21] MEDS ORDERED: ePHEDrine sulfate 50 MG/ML AMP IV PRN (13:13)
[2019-12-21] MEDS ORDERED: fentaNYL 2MCG/ML ROPIV 1.25MG/ML 100 ML BAG EPI PRN (13:13)
[2019-12-21] MEDS ORDERED: NALOXONE HCL 1 MG in SODIUM CHLORIDE 0.9% 1000ML 1,000 ML IV PRN (13:13)
[2019-12-21] MEDS ORDERED: NALOXONE HCL 0.4 MG/1 ML VIAL/CARP IV PRN (13:13)
[2019-12-21] MEDS ORDERED: ONDANSETRON INJ 2 MG/ML 2 ML VIAL IV PRN (13:13)
--- NOTE | 2019-12-21 13:46 | Labor Progress Brief Note ---
Date of Service December 21, 2019 Subjective comfortable with epidural Assessment & Plan (1) Carrier of group B Streptococcus: Continue pcn (2) Elective induction of labor planned: continue current management. fetus category one. Anticipate . Physical Exam Constitutional: WD/WN, vitals as above Psychiatric: A+Ox3, euthymic affect Genitourinary: cx--4/90/-2 arom--copious clear toco--q2-4min, pit at 8 efm--135 with mod variablity, accels to 150s, no decels Results & Data Vital Signs (Past 12 Hours) Vital Signs Temp Pulse Resp BP Pulse Ox 12/21/19 13:40 83 98 12/21/19 13:35 72 20 99 12/21/19 13:30 69 99 12/21/19 13:29 71 108/56 L 12/21/19 13:25 80 98 12/21/19 13:23 85 109/56 L 12/21/19 13:20 92 H 20 98 12/21/19 13:18 86 118/65 12/21/19 13:16 86 112/61 12/21/19 13:15 75 98 12/21/19 13:14 75 106/63 12/21/19 13:12 78 115/71 12/21/19 13:10 69 111/70 97 12/21/19 13:08 72 115/73 12/21/19 13:05 78 98 12/21/19 13:00 80 99 12/21/19 12:55 79 100 12/21/19 12:50 80 100 12/21/19 12:45 75 99 12/21/19 12:40 68 100 12/21/19 12:35 75 122/59 L 98 12/21/19 11:42 68 115/69 12/21/19 11:29 37.0 C 20 12/21/19 10:05 78 121/72 12/21/19 09:11 90 123/71 12/21/19 07:46 36.1 C L 86 20 122/74 12/21/19 07:42 36.1 C L 86 20 122/74 Coding Level of Care Code None Diagnoses Carrier of group B Streptococcus Z22.330 Elective induction of labor planned
--- NOTE | 2019-12-21 15:03 | Delivery Summary ---
Vaginal Delivery Summary Date of Service December 21, 2019 Vaginal Delivery Summary Pre-operative Diagnosis: at 39 weeks hx of rapid induction Post-operative Diagnosis: same Procedure: pitocin induction epidural EBL: 300cc Anesthesia: epidural Procedure: The patient pushed for 2 contractions to deliver a viable male in doa position. a tight nuchal cord was identified and clamped and cut on the perineum. The nose and mouth were bulb suctioned on the perineum and the rest of the infant was then delivered without difficulty. The baby was vigorous. The infant was placed in the maternal abdomen for drying and attention. Cord blood and segment obtained. Placenta delivered spontaneous, intact with a three vessel cord. Cervix/sulci/rectum/perineum were intact. Hemostasis obtained with dilute pitocin and fundal massage. Apgars were 8/9. M other and baby doing well at the end of the delivery. [facility] [place] Vaginal Delivery Charge Vaginal Delivery Codes: 78177 global code for the antepartum, delivery, and post-
[2019-12-21] MEDS ORDERED: ACETAMINOPHEN W/CODEINE #3 1 TAB PO PRN (15:22)
[2019-12-21] MEDS ORDERED: HYDROCORTISONE ACETATE 25 MG SUPP PR PRN (15:22)
[2019-12-21] MEDS ORDERED: BENZOCAINE 20% AER SPR 82.5 GM CAN EXT PRN (15:22)
[2019-12-21] MEDS ORDERED: ACETAMINOPHEN 325 MG TAB PO PRN (15:22)
[2019-12-21] MEDS ORDERED: bisacodyL 10 MG SUPP PR PRN (15:22)
[2019-12-21] MEDS ORDERED: DIPHTHERIA/TETANUS/PERTUSSIS 0.5 ML SYR/VIAL IM ONE (15:22)
[2019-12-21] MEDS ORDERED: SUPERCREAM 0.870% 15 GM JAR EXT PRN (15:22)
--- NOTE | 2019-12-21 16:52 | Anesthesia Procedure Note ---
Date of Service December 21, 2019 Anesthesia Post Epidural Note Vital Signs Vital Signs: Temp Pulse Resp BP Pulse Ox 37.0 C 83 20 117/80 100 12/21/19 11:29 12/21/19 16:41 12/21/19 16:26 12/21/19 16:41 12/21/19 14:45 Pain Intensity Bilateral Abdomen: Pain Intensity: 0 Notes Mental Status: alert / awake / arousable and participated in evaluation Nausea / Vomiting: adequately controlled Pain: adequately controlled Airway Patency, RR, SpO2: stable & adequate BP & HR: stable & adequate Hydration State: stable & adequate Neuraxial Anesthesia: was administered and sensory block is resolving Anesthetic Complications: no major complications apparent Epidural: Removed without complications and With tip intact
[2019-12-21] MEDS: IBUPROFEN 600 MG TAB PO PRN ×2 (17:39→20:54)
[2019-12-21] MEDS: DOCUSATE SODIUM 100 MG CAP PO SCH (20:55)
[2019-12-21] MEDS ORDERED: NITROFURANTOIN MONOHYDRATE 100 MG CAP PO SCH (21:00)
[2019-12-22] MEDS: IBUPROFEN 600 MG TAB PO PRN ×4 (01:14→16:13)
--- NOTE | 2019-12-22 06:09 | Obstetrical Progress Note ---
Date of Service December 22, 2019 Assessment & Plan Admission and Anticipated Discharge Date Admission Date: December 21, 2019 29 yo s/p electively induced VD @ 39.0 via complicated by pyelonephritis, and GBS positive given 2 doses of penicillin prior to delivery. - PPD# 1 - GBS +, Blood Type O+ - Feels well today. Eating well, voiding well, ambulating well. - Pain well controlled . - Routine post care - After discharge will have [address] Jensen. Supervising Physician Co-Signing Physician Notes Resident Physician Supervision Note: I interviewed and examined the patient. Discussed with Dr. Yancey and agree with findings and plan as documented in the note. Any exceptions or clarifications are listed here: Doing well. Would like to go home today but mom GBS positive and likely baby will stay til tomorrow. Routine care. Documented By: Laura Jensen MD, FACOG Subjective Heather Braxton is doing well this morning, she is walking, voiding, and eating a regular diet without nausea. Her bleeding is less than a heavy period and she is bottle feeding which is going well. Her pain is 2/10 and crampy. She did not have any questions this morning. Review of Systems Review of Systems: Denies fever, chills, sweats Denies shortness of breath, difficulty breathing, chest pain, palpitations, chest pressure. Denies breast pain. Denies dysuria. Denies headache. Physical Exam Physical Exam: General: Alert, oriented. No acute distress. Cardiac: Regular rate and rhythm, no murmurs/rubs/gallops. Respiratory: Clear to auscultation anterior and posteriorly, no wheezes/rales/rhonchi. No increased work of breathing. Symmetrical chest rise. No respiratory distress. Abdomen: Soft, nontender, nondistended. Bowel sounds present. Uterus: Uterine fundus firm, palpable 1 cm below umbilicus. Lower Extremities: No lower extremity edema or swelling. No deep calf pain. Jesse's negative bilaterally. Results & Data ([facility]) Vital Signs (Past 12 Hours) Vital Signs Temp Pulse Resp BP Pulse Ox 12/22/19 03:30 36.5 C 54 L 18 107/70 98 12/21/19 23:30 36.5 C 63 18 114/69 98 12/21/19 19:20 36.7 C 58 L 18 117/71 98 Resident Activity Tracking Resident Involvement: Resident Care Provided Care Provided: OB Delivery
[2019-12-22 07:42] LABS: Hemoglobin 11.6 g/dL (12.0-16.0); Mean Corpuscular Hemoglobin 30.4 pg (25-34); Mean Corpuscular Hgb Conc 33.1 g/dL (32-36); Mean Corpuscular Volume 91.9 fL (80-100); Mean Platelet Volume 12.9 fL (7.4-10.4); Platelet Count 124 K/uL (130-400); Platelet Estimate Decreased (Normal); RDW Coefficient of Variation 13.6 % (11.5-14.5); Red Blood Count 3.81 M/uL (4.2-5.4); White Blood Count 12.85 K/uL (4.8-10.8)
[2019-12-22] MEDS ORDERED: PRENATAL VITAMIN 1 TAB PO SCH (08:00)
[2019-12-22] MEDS: DOCUSATE SODIUM 100 MG CAP PO SCH (08:32)
[2019-12-22] MEDS ORDERED: NON-FORMULARY MEDICATION (Prenat.Vits,Cal,Min-Iron-Folic 1 TAB) PO SCH (09:00)
[2019-12-22] MEDS ORDERED: bisacodyL 5 MG TABEC PO SCH (20:00)
== END 2019-12-22 19:45 | disposition home or self-care (01) | DRG 807 ==
LOC: 4S1 07:34 → 4S2 17:52